=== PATIENT | male | born 1975 | race Two or more races ===

== ENCOUNTER → 2020-06-29 | Outpatient (CLI) | payer BC ==
--- NOTE | 2020-06-29 15:32 | US ---
EXAMINATION TYPE: US venous doppler duplex UE RT DATE OF EXAM: 06/29/2020 COMPARISON: NONE CLINICAL HISTORY: RUE R22.31 Localized swelling, mass or lump. SIDE PERFORMED: Right Right Arm: Negative for DVT IMPRESSION: No evidence for DVT.
== END | disposition home or self-care (01) ==
LOC: RADUSWWP 14:41
PROVIDERS: ATTEND Family Medicine
DX: M25.521 Pain in right elbow (principal)